=== PATIENT | female | born 1975 | race Caucasian/White ===

== ENCOUNTER 2016-09-01 18:04 | Observation (INO) | payer BC ==
[~2016-09-01] VITALS: Ht 162.6 cm; Wt 100.1 kg
[2016-09-01 19:46] LABS: CHLORIDE 109 mEq/L (99-109); SODIUM 140 mEq/L (136-147)
[2016-09-01 19:48] LABS: GLUCOSE 91 mg/dL (70-99)
[2016-09-01 19:49] LABS: ANION GAP 9 MEQ/L (2-14); HEMATOCRIT 25.8 % (36.0-46.0); MCH 16.7 PG (29.0-34.0); MCHC 26.4 G/DL (30.0-36.0); MCV 63.4 FL (83-99); MEAN PLAT.VOLUME 9.6 uM^3 (9.5-12.4); NRBC (%) 0.6 /100 WBC (0-0); PLATELET COUNT 542 K/uL (156-360); RBC DIS.WIDTH-CV 23.8 % (11.8-14.6); RBC DIS.WIDTH-SD 50.7 % (39-53); RED BLOOD COUNT 4.07 M/uL (3.80-5.20); WHITE BLOOD COUNT 8.3 K/uL (4.1-10.2)
[2016-09-01 19:50] LABS: TOTAL BILIRUBIN 0.3 mg/dL (0.0-1.0)
[2016-09-01 19:51] LABS: ALKALINE PHOSPHATASE 56 IU/L (3-129)
[2016-09-01 19:52] LABS: GFR ESTIMATE (CALCULATED) > 59 mL/min/
[2016-09-01 19:53] LABS: UREA NITROGEN (BUN) 13 mg/dL (9-23)
[2016-09-01 19:55] LABS: LIPASE 67 U/L (1.0-51.0)
[2016-09-01 19:57] LABS: TROP-I INTERPRETATION NEGATIVE; TROPONIN-I < 0.01 ng/mL (0.0-0.30)
[2016-09-01 20:03] LABS: QUANTITATIVE HCG < 4.0 MIU/ML
[2016-09-01 20:38] LABS: POINT-OF-CARE METER ID UU13113800
[2016-09-01] MEDS ORDERED: AMOX TR-K CLV1 EAC4 PO (23:04)
[2016-09-01] MEDS ORDERED: FLONASE16 G1 BOTH NARES (23:05)
[2016-09-02 01:45] VITALS: BP 104/66
[2016-09-02 06:46] LABS: TROP-I INTERPRETATION NEGATIVE; TROPONIN-I < 0.01 ng/mL (0.0-0.30)
[2016-09-02 08:43] VITALS: BP 122/73
[2016-09-02 09:06] LABS: POC NON-PRINT COM 1 ND
[2016-09-02 09:10] LABS: FERRITIN 2 NG/ML (10-291)
[2016-09-02 10:00] LABS: IRON < 10 MCG/DL (35-150)
[2016-09-02] MEDS ORDERED: NICOTINE PATCH1 EACH TD (12:11)
[2016-09-02] MEDS ORDERED: CYANOCOBAL1000 MCG/2 IM (12:12)
[2016-09-02 12:48] VITALS: BP 126/70
[2016-09-02 13:30] LABS: TROP-I INTERPRETATION NEGATIVE; TROPONIN-I 0.01 ng/mL (0.0-0.30)
[2016-09-02 15:56] VITALS: BP 134/62
[2016-09-02] MEDS ORDERED: PERCOCET 5/31 TABLET PO (17:11)
[2016-09-02] MEDS ORDERED: [UNRECOGNIZED DRUG - SUPPLY] MC (17:30)
[2016-09-02] MEDS ORDERED: EASY TOUCH HYP1 EA10 MC (17:31)
[2016-09-02 17:55] VITALS: BP 118/59
[2016-09-02 18:38] VITALS: BP 110/59
== END 2016-09-02 19:32 | disposition home or self-care (01) ==
LOC: EME 18:04 → EDOF 23:58 → 5WEST 23:58
PROVIDERS: Hospitalist; Physician Assistant
DX: D50.9 Iron deficiency anemia, unspecified (principal); D51.9 Vitamin B12 deficiency anemia, unspecified; K91.2 Postsurgical malabsorption, not elsewhere classified; K95.89 Other complications of other bariatric procedure; R01.1 Cardiac murmur, unspecified; J06.9 Acute upper respiratory infection, unspecified; Z98.84 Bariatric surgery status
CPT/HCPCS: 71020; 80053; 82272; 82607; 82728; 82746; 82948; 83540; 83690; 84466; 84484; 84702; 85027; 86870; 86900; 86901; 86920; 93005; 93306; 99281; 99285; G0378; J3420; J7030; J7050; Q0138